=== PATIENT | female | born 1950 | race Two or more races ===

== ENCOUNTER → 2021-09-29 | Outpatient (CLI) | payer MEDICARE ==
--- NOTE | 2021-09-30 16:21 | RAD ---
Bilateral digital screening 2-D and 3-D (digital breast tomosynthesis) mammogram: Reason for examination: Routine screening. Comparison: Mammogram from 03/19/2020. Interpretation was made with the benefit of CAD. FINDINGS: Breast density: Category A. Breast tissue is almost entirely fatty. No suspicious breast mass, malignant appearing calcifications, or architectural distortion is seen. IMPRESSION: No evidence of malignancy. Assessment: BI-RADS 1. Negative. Recommendation: Routine screening mammograms. The patient will receive a letter with the results in the mail. Patient information will be entered i nto the mammography reminder system with a target recall date for the next mammogram. A reminder malia er will be generated. Electronically signed by: Lina Nazario MD (09/30/2021 4:18 PM) [id number]
== END ==
LOC: MAMMO 10:39
PROVIDERS: ATTEND Family Medicine
DX: Z12.31 Encounter for screening mammogram for malignant neoplasm of breast (principal)
CPT/HCPCS: 77063; 77067

== ENCOUNTER → 2021-11-11 | Outpatient (CLI) | payer MEDICARE ==
--- NOTE | 2021-11-12 10:58 | KCIC ---
XR LUMBAR SPINE 2-3V History: Reason: CHRONIC RADICULAR LBP, NKI / Spl. Instructions: / History: Technique: 3 views lumbar spine. Comparison: None. Findings: Normal vertebral body height and alignment. No acute fracture. Moderate degenerative disc changes mos t prominent L2-L3 and L5-S1. Facet arthropathy. Impression: 1. Moderate lumbar spondylosis. Electronically signed by: Jaylan Love DO (11/12/2021 10:55 AM) [id number]
== END ==
LOC: KCIC 16:08
PROVIDERS: ATTEND Family Medicine
DX: M47.817 Spondylosis without myelopathy or radiculopathy, lumbosacral region (principal); M48.8X7 Other specified spondylopathies, lumbosacral region
CPT/HCPCS: 72100